=== PATIENT | female | born 1930 | race Two or more races ===

== ENCOUNTER 2017-09-24 01:18 | Inpatient (IN) | payer OTHER ==
[2017-09-24] MEDS ORDERED: HYDROmorphONE/DILAUDID 1 MG/ML INJ IVP ONE (01:37)
[2017-09-24] MEDS ORDERED: ONDANSETRON 4 MG/2 ML VIAL IVP ONE (01:37)
[2017-09-24] MEDS ORDERED: NS 1,000 ML IV ONE (01:37)
--- NOTE | 2017-09-24 01:46 | EDPHY ---
H & P Stated Complaint: abd pain for 2 hours HPI/ROS: HPI CHIEF COMPLAINT: Abdominal pain HISTORY OF PRESENT ILLNESS: Patient very pleasant 87-year-old female, she presents emergency room left lower quadrant abdominal pain. She reports this started 3 hr ago crampy/sharp in nature. Patient reports she had vomiting with this. No fever. Additionally had diarrhea.. States the pain is rather severe 8/10 left lower quadrant. crampy/Sharp in nature. She states feels like exactly likely her previous diverticulitis. She denies chest pain or shortness of breath. Past Medical History: Diverticulitis Past Surgical History: Multiple back surgeries, partial colectomy, appendectomy Social History: Denies daily use drugs alcohol tobacco. Family History: Noncontributory. ROS REVIEW OF SYSTEMS: A comprehensive 10 point review of systems is otherwise negative aside from elements mentioned in the history of present illness. Exam Constitutional appears well nontoxic triage nursing summary reviewed, vital signs reviewed, awake/alert. Eyes normal conjunctivae and sclera, EOMI, PERRLA. HENT normal inspection, atraumatic, moist mucus membranes, no epistaxis, neck supple/ no meningismus, no raccoon eyes. Respiratory clear to auscultation bilaterally, normal breath sounds, no respiratory distress, no wheezing. Cardiovascular rate normal, regular rhythm, no murmur, no edema, distal pulses normal. Gastrointestinal tender palpation left lower quadrant, no rebound, no guarding , normal bowel sounds, no distension, no pulsatile mass. Genitourinary no CVA tenderness. Musculoskeletal no midline vertebral tenderness, full range of motion, no calf swelling, no tenderness of extremities, no meningismus, good pulses, neurovascularly intact. Skin pink, warm, & dry, no rash, skin atraumatic. Neurologic awake, alert and oriented x 3, AAOx3, moves all 4 extremities equally, motor intact, sensory intact, CN II-XII intact, normal cerebellar, normal vision, normal speech. Psychiatric normal mood/affect. Heme/Lymph/Immune no lymphadenopathy. Differential diagnosis includes but is not limited to and in no particular order : Bowel obstruction, appendicitis, gallbladder disease, diverticulitis, colitis , enteritis, perforated viscus, gastritis, GERD, esophagitis, urinary tract infection, pyelonephritis, kidney stones Medical Decision Making: Plan for this patient IV establishment with IV fluid bolus, IV Dilaudid for acute pain control, IV Zofran nausea, will proceed with CT scan abdomen pelvis with IV contrast rule out acute diverticulitis. Check lactic acid check basic blood work. Re-evaluation: [id number]: CT scan abdomen pelvis without contrast due to allergy to IV contrast called to me by Dr. Alba. He does not see an acute evidence of acute diverticulitis however there is a large amount of the small bowel that is fluid filled concerning for maybe an ileus or enteritis. No evidence of obstruction. 0233: I did reexamine the patient she does feel slightly better after IV fluids Dilaudid and nausea medicine. However she continues to be rather tender in her left lower quadrant of her abdomen. [id number] will consult surgery for evaluation. Spoke with Dr. Garza he will come and see and evaluate the patient. 0314: I did discuss this case with Marvin. They are fine with us keep her car. They report to me that [facility] is full. And that they are fine with us keeping her in the hospital here [facility], [facility]. 0315: Will consult the hospitalist service for admission. Surgery to follow. They are going to recommend a small-bowel follow-through. 0334: Spoke with Dr. Green Hospalist Service agrees to admit. Patient hemodynamically stable this time resting comfortably. She is not vomiting. Her pain is controlled. Nausea controlled. Source: Patient - Personal History Current Tetanus/Diphtheria Vaccine: Yes Current Tetanus Diphtheria and Acellular Pertussis (TDAP): Yes - Medical/Surgical History Hx Asthma: No Hx Chronic Respiratory Disease: No Hx Diabetes: No Hx Cardiac Disease: No Hx Renal Disease: No Hx Cirrhosis: No Hx Alcoholism: No Hx HIV/AIDS: No Hx Splenectomy or Spleen Trauma: No Other PMH: diverticulitis, appendectomy, hystectomy, back surgery - Social History Smoking Status: Former smoker Constitutional: Initial Vital Signs Temperature (C) 36.9 C 09/24/17 01:21 Heart Rate 115 H 09/24/17 01:21 Respiratory Rate 18 09/24/17 01:21 Blood Pressure 118/99 H 09/24/17 01:21 O2 Sat (%) 95 09/24/17 01:21 O2 Delivery Mode Nasal Cannula O2 (L/minute) 1 Allergies/Adverse Reactions: aspirin Allergy (Verified 09/28/17 15:32) iodine Allergy (Verified 09/24/17 01:25) Home Medications: Medication Instructions Recorded NK [No Known Home Meds] 09/24/17 Medical Decision Making - Data Points Laboratory Results: Laboratory Results 09/25/17 04:10 09/25/17 04:10 Medications Given: Acetaminophen (Tylenol) 650 mg PO Q4HRS PRN PRN Reason: Pain, Mild/Fever, Can Take PO Stop: 03/23/18 04:46 Last Admin: 09/28/17 12:20 Dose: 650 mg Amoxicillin/Clavulanate Potassium (Augmentin 875mg) 875 mg PO BID TONJA PRN Reason: Protocol Stop: 10/27/17 08:59 Last Admin: 09/28/17 12:20 Dose: 875 mg Morphine Sulfate (Morphine) 1 - 2 mg IVP Q4HRS PRN PRN Reason: Pain, Severe Unable to Take PO Stop: 10/04/17 03:14 Last Admin: 09/24/17 04:57 Dose: 2 mg Polyethylene Glycol (Miralax) 17 gm PO DAILY [facility] Stop: 03/25/18 08:59 Last Admin: 09/28/17 09:04 Dose: 17 gm Tramadol HCl (Ultram) 50 mg PO Q6HRS PRN PRN Reason: Pain, Moderate Able to Take PO Stop: 03/25/18 14:28 Last Admin: 09/28/17 15:16 Dose: 50 mg Discontinued Medications Hydromorphone HCl (Dilaudid) 0.5 mg IVP EDNOW ONE Stop: 09/24/17 01:38 Last Admin: 09/24/17 01:56 Dose: 0.5 mg Hydromorphone HCl (Dilaudid) 0.2 - 0.4 mg IVP Q4HRS PRN PRN Reason: Pain, Severe Unable to Take PO Stop: 10/04/17 04:46 Last Admin: 09/24/17 05:55 Dose: 0.4 mg Hydromorphone/Sodium Chloride (Hydromorphone) 0.2 - 0.4 mg IVP Q4HRS PRN PRN Reason: Pain, Severe Unable to Take PO Stop: 10/06/17 12:43 Last Admin: 09/28/17 05:50 Dose: 0.4 mg Sodium Chloride (Ns) 1,000 mls @ 0 mls/hr IV EDNOW ONE; Wide Open PRN Reason: Protocol Stop: 09/24/17 01:38 Last Admin: 09/24/17 01:47 Dose: 1,000 mls Dextrose/Sodium Chloride (D5w 1/2 Ns) 1,000 mls @ 150 mls/hr IV CONT TONJA Stop: 03/23/18 03:14 Last Admin: 09/26/17 02:13 Dose: 1,000 mls Sodium Chloride (Ns) 1,000 mls @ 100 mls/hr IV CONT TONJA Stop: 09/28/17 02:44 Last Admin: 09/27/17 17:16 Dose: 1,000 mls Ondansetron HCl (Zofran) 4 mg IVP EDNOW ONE Stop: 09/24/17 01:38 Last Admin: 09/24/17 01:56 Dose: 4 mg Potassium Chloride (Klor-Con) 10 - 40 meq PO ONCE ONE PRN Reason: Protocol Stop: 09/28/17 15:03 Last Admin: 09/28/17 15:18 Dose: 40 meq Prednisone (Prednisone) 40 mg PO ONCE ONE Stop: 09/28/17 13:48 Last Admin: 09/28/17 14:29 Dose: 40 mg Promethazine HCl (Phenergan) 6.25 mg IVP ONCE ONE Stop: 09/24/17 03:24 Last Admin: 09/24/17 03:25 Dose: 6.25 mg Departure - Departure Disposition: [facility] In[facility] Acute Clinical Impression: Abdominal pain Qualifiers: Abdominal location: left lower quadrant Qualified Code(s): R10.32 - Left lower quadrant pain Condition: Fair
[2017-09-24 01:50] LABS: PLATELET COUNT 299 10^3/uL (150-400)
[2017-09-24] MEDS ORDERED: IOPAMIDOL (ISOVUE-300) 100 ML BTL ONE (01:54)
[2017-09-24 01:59] LABS: INR 0.87 (0.83-1.16)
--- NOTE | 2017-09-24 03:11 | PDCONSULT ---
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 She had emesis and dry heaves at home at was brought to the ED by her son. She was seen by Dr. Seymour and surgical consultation was requested. She was admitted for a similar episode in May of this year in [place], [place] and had a nasogastric tube placed but did not require surgery. She reports the pain to be predominantly left sided and comes and goes. Her last BM was yesterday morning. PMH: medications: none all: Iodine, ASA non-smoker surgery: partial colectomy for diverticulitis, cholecystectomy, appendectomy, C- section SH: here with her son/recently moved to [place] from [place] FH: non-contributory ROS: reports bilious emesis denies melena, hematochezia, hematemesis, weight loss, chest pain, dyspnea PE:T 36.6 P 88 R 16 BP 119/78 Pleasant elderly female in mild distress/does not want pain medication No scleral icterus chest clear to ausc CVS: RRR Abd: soft, distended, +BS, LLQ tenderness with mild guarding/no rebound remainder of abd mildly tender pelvic/rectal: not performed ext: no edema neuro/psych: Ox3, normal mood and affect CT: reviewed: extensive diverticulosis without findings of diverticulitis (non- contrast study) mild dilatation small bowel with some fecalization/no transition point no free air, no intraperitoneal fluid Lab: wbc 13 Hgb 15.1 Hct 42.9 plat 299K creat. 0.9 BUN 14 gluc 125 Na 142 K 4.8 Cl 106 CO2 22 LFTs wnl lipase 316 venous lactate 1.8 Imp:1. abdominal pain, nausea/vomiting findings on CT suspicious for partial bowel obstruction 2. diverticulosis w/ hx colon resection for diverticulitis 3. obesity 4. s/p lap cholecystectomy Rec: admit for observation/SBFT will hold off on NGT for now discussed with Dr. Seymour, patient and her son S MD Greg, FACS
[2017-09-24] MEDS ORDERED: PROMETHAZINE HCL 25 MG/ML INJ IVP ONE (03:23)
[2017-09-24] MEDS ORDERED: HYDROmorphONE/DILAUDID 1 MG/ML INJ IVP PRN (04:47)
[2017-09-24] MEDS ORDERED: ONDANSETRON 4 MG/2 ML VIAL IVP PRN (04:47)
--- NOTE | 2017-09-24 09:17 | GHP ---
[f rep st] HISTORY AND PHYSICAL DATE OF ADMISSION: 09/24/2017 SOURCE: Patient able to provide majority of the history, appears reliable. Her EMR was reviewed and case discussed with ED provider and General Surgery. CHIEF COMPLAINT: Abdominal pain, nausea, vomiting, and diarrhea. HISTORY OF PRESENT ILLNESS: This is a very pleasant 87-year-old female with past medical history significant for diverticulosis with history of partial colectomy and obesity who presented to the emergency department today from home after she developed some intractable nausea, vomiting, and diarrhea following her dinner meal. The patient reports intermittent cramping, left lower quadrant abdominal pain with intermittent sharp pains. She has noted increased distention. She did have episode of diarrhea earlier. She denies any fevers. No recent sick contacts. The patient denies any hematemesis, melena, or hematochezia. No fevers or chills. Patient reports in May 2017 she had an episode of colitis, which was worked up in the outpatient setting in [place] at the [facility] there. The patient recently relocated from [facility] to be closer to her son. REVIEW OF SYSTEMS: Negative except as noted above. ALLERGIES: To aspirin and iodine. HOME MEDICATIONS: None. PAST MEDICAL HISTORY: Significant for diverticulosis, obesity. PAST SURGICAL HISTORY: Significant for multiple back surgeries, partial colectomy, appendectomy, . FAMILY HISTORY: The patient reports her son is healthy. The parents are . No family history of colitis, Crohn's, irritable bowel disease, or colon cancer. SOCIAL HISTORY: The patient is a resident of [place]. She does not smoke or use illicit drugs or marijuana. She does drink occasional glass of wine on Fridays during the cocktail evenings at [place]. She does not drink on a daily basis. CODE STATUS: Full. Patient's son is MD MARI. PHYSICAL EXAMINATION: VITAL SIGNS: Upon arrival in the ED, blood pressure 118/ 99, heart rate 115, respiratory rate 18, O2 saturation 94% on room air with temperature 36.9. Current vitals at time of interview, blood pressure 137/62, heart rate 79, respiratory rate 16, 100% O2 saturation on nasal cannula with 1 L , temperature 36.7. GENERAL: No acute distress upon my initial entry into the room. Patient is asleep and snoring softly. When she is awoken, she is pleasant, interactive, and cooperative, but during the course of the interview, she has increasing abdominal pain and discomfort and begins to cradle abdomen and become increasingly restless, unable to get comfortable. HEAD: Normocephalic, atraumatic. EYES: Grossly nonfocal. Voluntary gaze intact. No scleral icterus or conjunctival injection. ENT: Mucous membranes appear slightly dry. No oropharyngeal erythema or exudates. No nasal discharge. NECK : Supple. Trachea midline. CV: Regular rate and rhythm. No murmurs, rubs, or gallops. Slightly distant heart sounds. Limited secondary to body habitus. RESPIRATORY: Unlabored breathing. Lungs are clear to auscultation bilaterally. No wheezes, rales, or rhonchi appreciated. ABDOMEN: Distended, obese, soft. No rebound, guarding, or masses. No pinpoint tenderness to palpation. Hypoactive bowel sounds. : No suprapubic tenderness to palpation. No Musa catheter in place. MUSCULOSKELETAL: Patient is able to move all extremities. Strength is grossly intact. NEURO: Grossly nonfocal. No facial drooping. Moves all extremities as above. Awake, alert, and oriented x3. PSYCH: Patient is increasingly agitated, complaining of increasing abdominal pain and more restless, but still attempts to be cooperative. LABORATORY STUDIES: 1. WBC 13,000, H and H is 15.1 and 42.9, MCV of 90.7, platelet count 299, no bands. 2. PT 12.0, INR 0.87, PTT is 25.6, lactic acid 1.8. 3. Sodium is 142, potassium 4.8, chloride 106, CO2 is 22, anion gap 14, BUN 14 , creatinine 0.9, GFR 59, glucose 125, calcium 9.6, total bilirubin 0.5. ALT is 38. AST is 37. Alkaline phosphatase is 107, total protein 8.1. Albumin is 4.4. Lipase is 316. 4. UA: Specific gravity is 1.014 with 2+ blood, 2+ leukocyte esterase, RBCs of 5-10, trace bacteria, otherwise negative. 5. CT abdomen and pelvis reviewed with Dr. Garza. Mild diffuse fluid-filled small-bowel distention suggestive of ileus. No transition point. Diverticulosis of descending sigmoid colon without diverticulitis, hepatic cysts. ASSESSMENT AND PLAN: A pleasant 87-year-old female presents with acute onset of abdominal pain, nausea, vomiting, and diarrhea. 1. Abdominal pain is likely related to a partial small-bowel obstruction versus ileus versus less likely diverticulitis or colitis. The patient has been evaluated by Dr. Garza earlier in the emergency department with plans to obtain a small-bowel follow-through to further assess the patient's obstruction status. She will remain n.p.o. She will receive p.r.n. Dilaudid for acute pain. 2. Nausea, vomiting, diarrhea have improved. The patient without any further episodes of emesis since arrival to the ED. Consider NG tube placement if patient develops intractable nausea and vomiting for symptom control. 3. Leukocytosis secondary to stress response. Continue to monitor. Patient is afebrile. 4. Hyperglycemia is nonfasting without any previous history of diabetes. Permissive hyperglycemia in this pleasant 87-year-old, frail, elderly lady. 5. Obesity with a BMI of 33.6. 6. Fluid, electrolyte, nutrition. Patient will receive supplemental IV fluids while n.p.o. Electrolytes will be monitored and replaced p.r.n. Diet will be n.p.o. 7. Prophylaxis, SCDs. Holding anticoagulation pending general surgery reassessments and results of the small-bowel follow-through. 8. Cor status is full. Patient desires her son to act as proxy if needed. DISPOSITION: Patient admitted to observation at this time pending findings of the additional studies as above. /[id number]/MODL MTDD
[2017-09-24] MEDS: D5W 1/2 NS 1,000 ML IV SCH ×2 (11:02→22:21)
--- NOTE | 2017-09-24 15:08 | HOSPPROG ---
Hospitalist Progress Note Assessment/Plan: 87y female #Abd pain #SBO SBFT pending appreciate surgery consult #N/V/D none since admission #Leukocytosis #Hyperglycemia #Dispo unclear, cont in house treatment Subjective: Still having some abd pain. Objective: Vital Signs Temp Pulse Resp BP Pulse Ox 37.0 C 67 16 110/56 L 97 09/24/17 12:00 09/24/17 12:00 09/24/17 12:00 09/24/17 12:00 09/24/17 12:00 09/23/17 09/24/17 09/25/17 05:59 05:59 05:59 Intake Total 1000 Output Total 150 Balance 850 PT 12.0 SEC (12.0-15.0) 09/24/17 01:34 INR 0.87 (0.83-1.16) 09/24/17 01:34 - Physical Exam Constitutional: chronically ill appearing, uncomfortable Eyes: PERRL, anicteric sclera Ears, Nose, Mouth, Throat: moist mucous membranes, hearing normal Cardiovascular: No JVD, No edema Respiratory: no respiratory distress, reduced air movement Gastrointestinal: tenderness, No normoactive bowel sounds Skin: warm, normal color Musculoskeletal: no joint effusions, generalized weakness Psychiatric: not anxious, poor judgement, poor memory ICD10 Worksheet Patient Problems: Problems Problem Status Onset Abdominal pain Acute
--- NOTE | 2017-09-24 16:16 | ASMTCMCOM ---
CM Note CM Note Notes: Pt resides at [facility], came in for abd pain. OT eval pending. CM to follow for d/c needs. Date Signed: 09/24/2017 04:15 PM Electronically Signed By:VERN Javier
--- NOTE | 2017-09-24 19:55 | SOAPPROG ---
Downtime Inpatient MD Late Entry SOAP Note: SBFT reviewed- contrast enters ascending colon in a delayed fashion (5hr) but without evidencd of SBO. I would recommend a trial of clear liquids and continue medical management. Jonnie Garza MD, FACS
[2017-09-25] MEDS: D5W 1/2 NS 1,000 ML IV SCH ×3 (04:59→18:14)
[2017-09-25 05:36] LABS: PLATELET COUNT 234 10^3/uL (150-400)
--- NOTE | 2017-09-25 12:16 | HOSPPROG ---
Hospitalist Progress Note Assessment/Plan: Patient is an 87-year-old female who was admitted with abdominal pain, nausea, vomiting, diarrhea. She had a CT of the abdomen and pelvis which showed mild diffuse fluid filled small bowel distention suggestive of an ileus. No transition point. Diverticulosis of descending sigmoid colon with out diverticulitis, hepatic cyst were all noted. Today is my 1st encounter with the patient. Chart reviewed. * partial small-bowel obstruction versus an ileus -reviewed Dr. Garza progress note and will do a trial of clear liquids -small-bowel follow-through showed dilated loops and distention -per patient, she ate more than she should of over the holidays, ate foods she usually doesn't * abdominal pain -likely related to the above -says pain is in bilateral lower abdominal area -ongoing pain * hyperglycemia -stress induced likely * obesity with a BMI of 33.6 *plan: will see if she can eat and drink without difficulty, clear liquids ordered. Still having pain, will require another midnight stay to see if she improves. Subjective: Estephanie is c/o ongoing bilateral lower quadrant abdominal pain. Objective: Vital Signs Temp Pulse Resp BP Pulse Ox 37.1 C 82 16 115/73 93 09/25/17 11:22 09/25/17 11:22 09/25/17 11:22 09/25/17 11:22 09/25/17 11:22 Laboratory Results 09/25/17 04:10 09/25/17 04:10 09/24/17 09/25/17 09/26/17 05:59 05:59 05:59 Intake Total 8282 316 1241 Output Total 150 400 Balance 821 144 3217 PT 12.0 SEC (12.0-15.0) 09/24/17 01:34 INR 0.87 (0.83-1.16) 09/24/17 01:34 - Physical Exam Constitutional: obese, uncomfortable, No not in pain Eyes: PERRL Ears, Nose, Mouth, Throat: hearing normal Cardiovascular: regular rate and rhythym Respiratory: no respiratory distress Gastrointestinal: tenderness (left lower quadrant area), No normoactive bowel sounds (hypoactive) Skin: warm Musculoskeletal: generalized weakness Neurologic: AAOx3 Psychiatric: interacting appropriately ICD10 Worksheet Patient Problems: Problems Problem Status Onset Abdominal pain Acute
--- NOTE | 2017-09-25 16:43 | PDMN ---
Medical Necessity Medical necessity: C/M review: Acute and persistent abdominal pain, poor oral intake, (240 ml oral intake in prior [address] suggestive of ileus, small bowel follow through showed dilated loops and distention, partial small bowel obstruction versus ileus, hyperglycemia likely stress induced, , glucose 125, 114, requiring ongoing IV D5 1/2 NS 150 ml/hr, pulse oximetry, supplemental O2, acute inpt OT,comorbid diverticulitis of descending colon without diverticulitis on CT, obesity BMI 33.6.. SILO FILLER anticipates > 2 MN LOS for ongoing med nec for eval and TX of above. Patient is Medicare Advantage which follows guidelines CMS puts forth.
[2017-09-26] MEDS: D5W 1/2 NS 1,000 ML IV SCH (02:13)
[2017-09-26] MEDS: POLYETHYLENE GLYCOL 3350 17 GM PKT PO SCH (09:07)
--- NOTE | 2017-09-26 12:00 | HOSPPROG ---
Hospitalist Progress Note Assessment/Plan: Patient is an 87-year-old female who was admitted with abdominal pain, nausea, vomiting, diarrhea. She had a CT of the abdomen and pelvis which showed mild diffuse fluid filled small bowel distention suggestive of an ileus. No transition point. Diverticulosis of descending sigmoid colon with out diverticulitis, hepatic cyst were all noted. * partial small-bowel obstruction versus an ileus -tolerated clear liquids -small-bowel follow-through showed dilated loops and distention -per patient, she ate more than she should of over the holidays, ate foods she usually doesn't * abdominal pain -says pain is in bilateral lower abdominal area -ongoing pain * hyperglycemia -stress induced likely * obesity with a BMI of 33.6 *plan: DR Garza to come back by to see, patient cont to c/o llq pain/ nothing acute noted on her imaging Subjective: Estephanie says she is having ongoing llq pain. Objective: Vital Signs Temp Pulse Resp BP Pulse Ox 36.8 C 75 16 103/60 93 09/26/17 11:22 09/26/17 11:22 09/26/17 11:22 09/26/17 11:22 09/26/17 11:22 09/25/17 09/26/17 09/27/17 05:59 05:59 05:59 Intake Total 1611 Output Total 2250 1100 Balance -639 -1100 PT 12.0 SEC (12.0-15.0) 09/24/17 01:34 INR 0.87 (0.83-1.16) 09/24/17 01:34 - Physical Exam Constitutional: obese Eyes: PERRL Ears, Nose, Mouth, Throat: hearing normal Cardiovascular: regular rate and rhythym Respiratory: no respiratory distress Gastrointestinal: normoactive bowel sounds, tenderness (llq) Skin: warm Musculoskeletal: generalized weakness Neurologic: AAOx3 Psychiatric: interacting appropriately, not anxious ICD10 Worksheet Patient Problems: Problems Problem Status Onset Abdominal pain Acute
[2017-09-26] MEDS ORDERED: HYDROmorphone HCL/NS/PF 0.4 MG/2 ML SYR IVP PRN (12:44)
[2017-09-26 15:16] LABS: PLATELET COUNT 226 10^3/uL (150-400)
--- NOTE | 2017-09-27 07:33 | PDCONSULT ---
Wheat Cleaner Note: Sharon continues to have abdominal pain, mostly LLQ she has had no fever and no emesis/she has started having pain in her right wrist O-T 37.1 P 72 R 16 O2 sat 91% BP 125/96 Pleasant elderly female in no acute distress tender right MCP without ecchymosis, proximal IV without phlebitis Abd: soft/+ BS, tender LLQ without guarding wbc 11.47 Hgb 13.4 ESR 42 CRP 6.9 Imp/Plan:1. Ongoing abdominal pain, initally thought to be a SBO on CT with no evidence on SBFT/slow transit only and with extensive diverticulosis no diverticulitis by imaging I suspect low grade diverticulitis, despite negative imaging Will start po Augmentin 875 mg po BID 2. elevated lipase on admission-will repeat 3. right 1st MCP tenderness-probable osteoarthritis allergic to ASA/will continue Tylenol judie Garza MD, FACS
[2017-09-27] MEDS: AMOXICILLIN/CLAVULANATE POT 875/125 MG TAB PO SCH ×2 (08:03→20:05)
[2017-09-27] MEDS: POLYETHYLENE GLYCOL 3350 17 GM PKT PO SCH (08:03)
[2017-09-27] MEDS: ACETAMINOPHEN 325 MG TAB PO PRN (08:05)
[2017-09-27 08:29] LABS: PLATELET COUNT 229 10^3/uL (150-400)
--- NOTE | 2017-09-27 09:54 | HOSPPROG ---
Hospitalist Progress Note Assessment/Plan: Patient is an 87-year-old female who was admitted with abdominal pain, nausea, vomiting, diarrhea. She had a CT of the abdomen and pelvis which showed mild diffuse fluid filled small bowel distention suggestive of an ileus. No transition point. Diverticulosis of descending sigmoid colon with out diverticulitis, hepatic cyst were all noted. * partial small-bowel obstruction versus an ileus -tolerated clear liquids -small-bowel follow-through showed dilated loops and distention -per patient, she ate more than she should of over the holidays, ate foods she usually doesn't *possible low grade diverticulitis -imaging not showing, but patient has symptoms -Augmentin started * abdominal pain -says pain is in bilateral lower abdominal area -ongoing pain, probably due to the above *wrist pain/right -wrist is slightly swollen and red -will ask for iv to be removed and trial of warm compresses * hyperglycemia -stress induced likely * obesity with a BMI of 33.6 *plan: If better after lunch, will hopefully dc. Subjective: Estephanie is c/o nausea, but took antibiotic on an empty stomach, and c /o r wrist pain. Objective: Vital Signs Temp Pulse Resp BP Pulse Ox 36.8 C 72 16 131/82 H 93 09/27/17 08:00 09/27/17 08:00 09/27/17 08:00 09/27/17 08:00 09/27/17 08:00 Laboratory Results 09/27/17 08:15 09/27/17 08:15 09/26/17 09/27/17 09/28/17 05:59 05:59 05:59 Intake Total 1611 1150 Output Total 2250 1750 Balance -639 -600 PT 12.0 SEC (12.0-15.0) 09/24/17 01:34 INR 0.87 (0.83-1.16) 09/24/17 01:34 - Physical Exam Constitutional: no apparent distress, obese, uncomfortable Eyes: PERRL Ears, Nose, Mouth, Throat: hearing normal Cardiovascular: regular rate and rhythym Respiratory: no respiratory distress Gastrointestinal: normoactive bowel sounds, tenderness (left lower quad) Skin: warm, other (r wrist w some swelling) Musculoskeletal: generalized weakness Neurologic: AAOx3 Psychiatric: interacting appropriately, not anxious ICD10 Worksheet Patient Problems: Problems Problem Status Onset Abdominal pain Acute
[2017-09-27] MEDS: traMADol 50 MG TAB PO PRN (11:51)
--- NOTE | 2017-09-27 15:06 | ASMTCMCOM ---
CM Note CM Note Notes: Chart reviewed. Discussed with MD. Patient has had N/V/D today. No plan for discharge yet. CM to follow. Date Signed: 09/27/2017 03:06 PM Electronically Signed By:Emma Khoury RN
[2017-09-27] MEDS ORDERED: NS 1,000 ML IV SCH (16:45)
[2017-09-28] MEDS: ACETAMINOPHEN 325 MG TAB PO PRN ×2 (03:05→12:20)
[2017-09-28 05:12] LABS: PLATELET COUNT 209 10^3/uL (150-400)
[2017-09-28] MEDS: traMADol 50 MG TAB PO PRN ×2 (06:33→15:16)
--- NOTE | 2017-09-28 07:00 | PDCONSULT ---
Contracts Specialist Note: Estephanie is complaining of ongoing severe right wrist pain/not improved with Tylenol She has been eating and her abdominal pain is improved AFVSS tenderness right first MCP/no visibile swelling right dorsal hand IV removed for patient comfort Abd: soft/+BS mild residual LLQ tenderness to deep palpation no guarding or rebound wbc 10.6 Imp: 1. clinically improved mild diverticulitis 2. acute right wrist pain/MCP joint-suspect OA Rec: continue Augmentin 875 mg po BID plain films right wrist (I did not Rx with NSAIDS due to reported ASA allergy ) stable for discharge and outpatient follow up from surgical viewpoint S MD Greg, FACS
[2017-09-28] MEDS: POLYETHYLENE GLYCOL 3350 17 GM PKT PO SCH (09:04)
--- NOTE | 2017-09-28 12:11 | ASMTCMCOM ---
CM Note CM Note Notes: Still awaiting PT/OT recommendations to determine D/C needs. Patient is ready for d/c from surgical viewpoint per Dr. Garza. CM will follow. Date Signed: 09/28/2017 12:11 PM Electronically Signed By:Shelly Glez LCSW
[2017-09-28] MEDS: AMOXICILLIN/CLAVULANATE POT 875/125 MG TAB PO SCH ×2 (12:20→19:32)
[2017-09-28] MEDS ORDERED: predniSONE 20 MG TAB PO ONE (13:47)
[2017-09-28] MEDS ORDERED: PROTOCOL POTASSIUM 1 DOSE MISC PRN (13:48)
--- NOTE | 2017-09-28 14:53 | HOSPPROG ---
Hospitalist Progress Note Assessment/Plan: Patient is an 87-year-old female who was admitted with abdominal pain, nausea, vomiting, diarrhea. She had a CT of the abdomen and pelvis which showed mild diffuse fluid filled small bowel distention suggestive of an ileus. No transition point. Diverticulosis of descending sigmoid colon with out diverticulitis, hepatic cyst were all noted. * partial small-bowel obstruction versus an ileus -resolved -small-bowel follow-through showed dilated loops and distention -per patient, she ate more than she should of over the holidays, ate foods she usually doesn't *possible low grade diverticulitis -imaging not showing, but patient has symptoms -Augmentin started *hypokalemia -electrolyte protocol *nausea and vomiting -occurred after receiving abx/asked nursing staff to give with food * abdominal pain -says pain is in bilateral lower abdominal area -ongoing pain, probably due to the above *wrist pain/right/ gout -trial of prednisone -she is severely allergic to asa -wrist is slightly swollen and red * hyperglycemia -stress induced likely * obesity with a BMI of 33.6 *plan: spoke w PT and they felt she needed SNF, but patient wants to go home, I suspect once her pain is better in the wrist, she will do better w ADL's. Subjective: Estephanie said her abdomen is better but now right wrist is causing intense pain. Objective: Vital Signs Temp Pulse Resp BP Pulse Ox 36.7 C 61 16 136/82 H 93 09/28/17 11:18 09/28/17 11:18 09/28/17 11:18 09/28/17 11:18 09/28/17 11:18 Laboratory Results 09/28/17 04:35 09/28/17 04:35 09/27/17 09/28/17 09/29/17 05:59 05:59 05:59 Intake Total 1150 1350 Output Total 1750 500 Balance -600 850 PT 12.0 SEC (12.0-15.0) 09/24/17 01:34 INR 0.87 (0.83-1.16) 09/24/17 01:34 - Physical Exam Constitutional: uncomfortable, No not in pain Ears, Nose, Mouth, Throat: hearing normal Cardiovascular: regular rate and rhythym Respiratory: no respiratory distress Gastrointestinal: normoactive bowel sounds Skin: warm, other (right wrist at joint area red and warm, tender to the touch) Musculoskeletal: generalized weakness Neurologic: AAOx3 Psychiatric: interacting appropriately ICD10 Worksheet Patient Problems: Problems Problem Status Onset Abdominal pain Acute
[2017-09-28] MEDS ORDERED: POTASSIUM CL 10 MEQ TAB PO ONE (15:02)
[2017-09-28] MEDS ORDERED: IBUPROFEN 200 MG TAB PO PRN (15:23)
[2017-09-29 07:31] VITALS: BP 109/76; PULSE 67; RESP 20; TEMP 98.8; O2SAT 94
[2017-09-29] MEDS: POLYETHYLENE GLYCOL 3350 17 GM PKT PO SCH (08:30)
[2017-09-29] MEDS: AMOXICILLIN/CLAVULANATE POT 875/125 MG TAB PO SCH (08:30)
--- NOTE | 2017-09-29 08:32 | HOSPPROG ---
Hospitalist Progress Note Assessment/Plan: Patient is an 87-year-old female who was admitted with abdominal pain, nausea, vomiting, diarrhea. She had a CT of the abdomen and pelvis which showed mild diffuse fluid filled small bowel distention suggestive of an ileus. No transition point. Diverticulosis of descending sigmoid colon with out diverticulitis, hepatic cyst were all noted. 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 Objective: Vital Signs Temp Pulse Resp BP Pulse Ox 37.1 C 67 20 109/76 94 09/29/17 07:30 09/29/17 07:30 09/29/17 07:30 09/29/17 07:30 09/29/17 07:30 Laboratory Results 09/28/17 04:35 09/29/17 04:54 09/28/17 09/29/17 09/30/17 05:59 05:59 05:59 Intake Total 1350 1496 Output Total 500 Balance 850 1496 PT 12.0 SEC (12.0-15.0) 09/24/17 01:34 INR 0.87 (0.83-1.16) 09/24/17 01:34 - Physical Exam Constitutional: no apparent distress, obese Eyes: PERRL Ears, Nose, Mouth, Throat: hearing normal Respiratory: no respiratory distress Skin: warm, other (r wrist w redness and some swelling, but better since yesterday) Musculoskeletal: generalized weakness Neurologic: AAOx3 ICD10 Worksheet Patient Problems: Problems Problem Status Onset Abdominal pain Acute
[2017-09-29] MEDS ORDERED: predniSONE 20 MG TAB PO SCH (09:00)
--- NOTE | 2017-09-29 09:43 | PDIAF ---
- Diagnosis Diagnosis: mild diverticulitis, gout Code Status: Full Code - Medication Management Discharge Medications: Medications to Continue on Transfer Acetaminophen [Tylenol 325mg (*)] 650 mg PO Q4HRS PRN tab 09/29/17 [Last Taken Unknown] Allopurinol [Allopurinol 100 MG (*)] 100 mg PO DAILY #30 tab 09/29/17 [Last Taken Unknown] Amoxicillin/Clavulanate Pot [Augmentin 875 MG TAB (*)] 875 mg PO BID #7 tab 11/15 [Last Taken Unknown] Polyethylene Glycol 3350 [Miralax 17 gm (*)] 17 gm PO DAILY pkt 09/29/17 [Last Taken Unknown] predniSONE 40 mg PO DAILY #7 tablet 09/29/17 [Last Taken Unknown] Discharge Medications: Refer to the Discharge Home Medication list for PRN reason. - Orders Services needed: Home Care, Registered Nurse, Physical Therapy Home Care Face to Face: I certify that this patient was under my care and that I had the required [id number] encounter meeting the encounter requirements on the discharge day. My findings support the fact that the patient is homebound as defined in Home Care Face to Face Continued: CMS Chapter 7 Medicare Benefits Manual 30.1.1 , The condition of the patient is such that there exists a normal inability to leave home and consequently, leaving home would require a considerable and taxing effort. Diet Recommendation: no restrictions on diet Diet Texture: Regular Texture Diet Additional: help manage her medications, and evaluate strength and stability as far as gait in her home - Follow Up Care Current Providers and Referrals: MOE RUSSO [Other] - As per Instructions
--- NOTE | 2017-09-29 10:12 | GDS ---
[f rep st] DISCHARGE SUMMARY DISCHARGE DIAGNOSES: 1. Partial small-bowel obstruction versus an ileus. 2. Probable low-grade diverticulitis. 3. Hypokalemia. 4. Nausea and vomiting. 5. Abdominal pain. 6. Wrist pain, right, noted to have gout, new diagnosis on this admission. 7. Hyperglycemia. 8. Obesity with a body mass index of 33.6. CONSULTATION: Dr. Willi Garza. HOSPITAL COURSE: Briefly, the patient is an 87-year-old female who was admitted with abdominal pain, nausea, vomiting, diarrhea. She had a CT of the abdomen and pelvis, which showed some mild diffuse fluid-filled small-bowel distention suggesting an ileus. No transition point was noted. She has div erticulosis of the descending sigmoid colon without diverticulitis. There is concern that she had a small-bowel obstruction. A small-bowel follow-through was performed, which showed the degree of dist ention of mild distal bowel decreased during this study. She had a focal point of partial small-joana l obstruction involving the mid to distal ileum in the right lower quadrant that was not appreciated by the study. She was seen and evaluated by Dr. Garza. She had a difficult time during her stay, not ing that she had persistent abdominal pain. She was placed on Augmentin because of her symptoms. He r abdominal pain improved, but she developed significant vomiting and diarrhea after receiving this m edication, which also has subsided. Of note, she developed gout in her right wrist area that respond ed well to prednisone. She will have further followup with her primary care provider in the outpatie nt setting. HOSPITAL COURSE: 1. Partial small-bowel obstruction versus an ileus. This is resolved. 2. Possible low-grade diverticulitis. The imaging is not showing this, but she has symptoms that maciel ve been consistent with this. Augmentin started. 3. Hypokalemia, on electrolyte protocol. 4. Nausea and vomiting, resolved. 5. Abdominal pain, resolved. 6. Right wrist pain, gout. Pain is much better with prednisone. She will continue this for several more days and then be started on allopurinol. 7. Hyperglycemia, likely stress-induced. 8. Obesity. She has a body mass index of 33.6. DISCHARGE CONDITION: Stable. Blood pressure is 109/76, heart rate of 67, respiratory rate is 20, O2 sats on room air 94%. Temperature is 37.1 Celsius. DISCHARGE MEDICATIONS: Please see the EMR. DISCHARGE INSTRUCTIONS: 1. Follow up with her [place] doctor next week. 2. To take the prednisone as instructed. 3. To start allopurinol. 4. If she notes fever, chills, chest pain, shortness of breath, or worsening abdominal pain, return to the ER. 5. Greater than 30 minutes discharging and coordinating the patient's care. /[id number]/MODL
[2017-09-29] MEDS ORDERED: ONDANSETRON DISINTEGRATING 4 MG TAB PO PRN (10:34)
--- NOTE | 2017-09-29 16:24 | ASDISCHSUM ---
Discharge Information Plan Status:Home with No Needs Medically Cleared to Leave:09/28/2017 Discharge Date:09/29/2017 11:27 AM CM D/C Disposition: ADT D/C Disposition:Home, Routine, Self-Care Projected Discharge Date:09/29/2017 12:00 AM Transportation at D/C: Discharge Delay Reason: Follow-Up Date:09/29/2017 12:00 AM Discharge Slot: Final Diagnosis: Placement Information Patient Contact Information Contact Name:TERRYMCLAIN Relationship:Son Address: Work Phone: City: [facility] Phone: State/Karma Code: Email: Financial Information Financial Class:Medicare Advantage Plans Primary Plan Desc:[employer] [employer] Primary Plan Number:[id number] Secondary Plan Desc: Secondary Plan Number: Assessment Information [facility] CM Progress Note CM Note CM Note Notes: Pt resides at [facility], came in for abd pain. OT eval pending. CM to follow for d/c needs. Date Signed: 09/24/2017 04:15 PM Electronically Signed By:VERN Javier [facility] CM Progress Note CM Note CM Note Notes: Chart reviewed. Discussed with . Patient has had N/V/D today. No plan for discharge yet. CM to follow. Date Signed: 09/27/2017 03:06 PM Electronically Signed By:Emma Khoury RN [facility] CM Progress Note CM Note CM Note Notes: Still awaiting PT/OT recommendations to determine D/C needs. Patient is ready for d/c from surgical viewpoint per Dr. Garza. CM will follow. Date Signed: 09/28/2017 12:11 PM Electronically Signed By:Shelly Glez LCSW Case Management Discharge Plan Note Case Management Discharge Discharge Order Complete? Answers: Yes Patient to Obtain Answers: Independently Medications Transportation Arranged Answers: Family/Friends EMTALA Complete Answers: No Case Management Transport Answers: No Form Complete Faxed Final Orders Answers: No Agency/Facility Transfer Answers: No Report Printed & Faxed to Receiving Agency Family Notified Answers: No Discharge Comments Notes: Pt is being discharged today. OT is recommending HC. PT is recommending home independent. Pt reports that she is not interested in any services at this time. Pt reports that her son will be picking her up. CM available for changes. Plan: [facility] [place] Date Signed: 09/29/2017 11:36 AM Electronically Signed By:ARMAAN High Intervention Information Intervention Type:*TERRI-Signed Date of Service:09/24/2017 12:19 PM Patient Type:Observation Staff Member:Delmy Asencio Hours: Discipline: Severity: Comment: Intervention Type:*IM-Signed Date of Service:09/29/2017 10:40 AM Patient Type:Inpatient Staff Member:Delmy Asencio Hours: Discipline: Severity: Comment:
== END 2017-09-29 11:27 | disposition home or self-care (01) | DRG 392 ==
LOC: F3N 04:40 → F3E 17:24 → OBSVTOIN 09-25 16:10
PROVIDERS: ADMIT Family Medicine; ATTEND Family Medicine
DX: K57.30 Diverticulosis of large intestine without perforation or abscess without bleeding (principal); K56.7 Ileus, unspecified; K56.609 Unspecified intestinal obstruction, unspecified as to partial versus complete obstruction; R73.9 Hyperglycemia, unspecified; E87.6 Hypokalemia; M10.9 Gout, unspecified; E66.9 Obesity, unspecified; Z68.33 Body mass index [BMI] 33.0-33.9, adult; Z87.891 Personal history of nicotine dependence
CPT/HCPCS: 97116-GP; 97161-GP; 97165-GO; 97530-GP; 97535-GO; J1170; J2405; J2550; J7512; Q9967